=== PATIENT | male | born 1945 | race Caucasian/White ===

== ENCOUNTER 2021-04-01 18:54 | Inpatient (IN) | payer MEDICARE, SELFPAY ==
[~2021-04-01] VITALS: Ht 185.4 cm; Wt 74.8 kg
[2021-04-01 18:54] VITALS: BP_SYST 112
--- NOTE | 2021-04-01 18:54 | NUR ---
Pt. bib ACLS with hx. of being discharged from [facility] about 2 weeks ago, per pt. he was admitted there for 2 nights and 3 days with + covid, was sent home with O2, Pt. states all day he felt more SOB than normal and he increased his O2 from 2L to 4L, he began having pain to upper left back and felt like he could not breathe so called 911, on EMS arrival to home O2 sat 90% with 4L/NC, pt. was placed on 15L Non rebreather mask with sat improving to 94%. On arrival here pt. stated feeling much better sat still 94% with 160 heart rate, pt. confirms has SVT
[2021-04-01] MEDS ORDERED: ADENOSINE 6MG/2ML VIAL IVP ONE ×3 (19:00→23:30)
[2021-04-01] MEDS ORDERED: ADENOSINE 6MG/2ML VIAL ONE ×2 (19:00→23:22)
--- NOTE | 2021-04-01 19:02 | NUR ---
ER at bedside examining patient.
--- NOTE | 2021-04-01 19:03 | NUR ---
190 - HR 148 6mg of adenosine pushed; 1902 heart rate 69, wasted 12mg of adenosine that was drawn incase 6mg did not convert pt.
[2021-04-01] MEDS ORDERED: NACL 0.9% 1,000 ML IV ONE (19:15)
--- NOTE | 2021-04-01 19:45 | NUR ---
SPO2 100% on 15 L NRB. O2 titrated to 4 L NC. Pt tolerating well. SPO2 between 93-96%.
[2021-04-01 20:17] LABS: MONOCYTES # (AUTO) 0.3 K/uL (0.0-1.0)
--- NOTE | 2021-04-01 20:32 | NUR ---
19:15 received report to assume pt care. Pt is resting on gurney, awake, in nad. Reports feeling better. NSR on cm, HR 70s. O2 sat 98% on 15 L NRB with begin to titrate down. IVF bolus infusing. Safety measures in place. Will continue to monitor.
[2021-04-01 20:38] LABS: ANION GAP 6 (5-15); CALCIUM 7.4 mg/dL (8.4-11.0); CHLORIDE 106 mmol/L (98-107); CREATININE 1.07 mg/dL (0.55-1.30); GLUCOSE 108 mg/dL (70-99); POTASSIUM 4.3 mmol/L (3.5-5.1); SODIUM SERUM 138 mmol/L (136-145); UREA NITROGEN, BLOOD 29 mg/dL (8-21)
[2021-04-01 20:47] LABS: ALANINE AMINOTRANSFERASE 51 U/L (12-78); ASPARTATE AMINOTRANSFERASE 27 U/L (10-37)
--- NOTE | 2021-04-01 20:54 | NUR ---
Critical TNI [address] Brian notified at this time.
[2021-04-01] MEDS ORDERED: ASPIRIN 325 MG TABLET PO ONE (21:00)
[2021-04-01] MEDS ORDERED: VANCOMYCIN HCL 1,000 MG in NS 250 ML IV ONE (21:00)
[2021-04-01] MEDS ORDERED: DEXAMETHASONE SOD PHOSPHATE 10 MG/ML VIAL IVP ONE (21:00)
[2021-04-01] MEDS ORDERED: PIPERACILLIN/TAZO 3.375 GM in NS 50 ML IV ONE (21:00)
[2021-04-01 21:12] LABS: BASOPHILS % (AUTO) 0.2 % (0.0-2.0); EOSINOPHILS # (AUTO) 0.1 K/uL (0.0-0.4); EOSINOPHILS % (AUTO) 0.6 % (0.0-4.0); HEMATOCRIT 32.5 % (36-54); LYMPHOCYTES # (AUTO) 0.5 K/uL (1.0-5.5); LYMPHOCYTES % (AUTO) 5.9 % (20.5-51.5); MEAN CORPUSCULAR HEMOGLOBIN 29 pg (27-31); MEAN CORPUSCULAR HGB CONC 34 % (32-36); MEAN CORPUSCULAR VOLUME 85 fL (79.0-98.0); NEUTROPHILS # (AUTO) 7.1 K/uL (1.8-7.7); NEUTROPHILS % (AUTO) 89.3 % (40.0-70.0); RED BLOOD CELL COUNT(AUTO) 3.82 MIL/uL (4.2-6.2); RED CELL DISTRIBUTION WIDTH 15.7 % (9.0-15.0)
[2021-04-01 21:15] LABS: PLATELET COUNT (AUTO) 101 K/uL (130-430)
[2021-04-01] MEDS ORDERED: PIPERACILLIN/TAZOBACTAM 3.375 GM/VIAL (ZOSYN) IV ONE (21:20)
[2021-04-01] MEDS ORDERED: VANCOMYCIN HCL 1000 MG/VIAL IV ONE (21:20)
[2021-04-01] MEDS ORDERED: KCL 20 mEq in D5NS 1000 mL 1,000 ML IV SCH (21:45)
[2021-04-01] MEDS ORDERED: GABA-529 PO (21:57)
[2021-04-01] MEDS ORDERED: ECO81 PO (21:57)
[2021-04-01] MEDS ORDERED: ZANU80CA PO (21:57)
[2021-04-01] MEDS ORDERED: BENZ-16 PO (21:57)
[2021-04-01] MEDS ORDERED: CHOL400T12 PO (21:57)
[2021-04-01] MEDS ORDERED: AMLO5TAB4 PO (21:57)
[2021-04-01] MEDS ORDERED: ALBU90AE2 INH (21:57)
[2021-04-01] MEDS ORDERED: DEXA6TAB5 PO (21:57)
[2021-04-01] MEDS ORDERED: ASC500 PO (21:57)
[2021-04-01] MEDS ORDERED: METO50TA16 PO (21:57)
[2021-04-01] MEDS ORDERED: THIA100T70 PO (21:57)
[2021-04-01] MEDS ORDERED: LIP40 PO (21:57)
[2021-04-01] MEDS ORDERED: COLC0.6T67 PO (21:57)
--- NOTE | 2021-04-01 21:57 | NUR ---
Medication reconciliation completed with information provided by [facility]. Any prior medication reconciliation on file was reviewed and corrected.
--- NOTE | 2021-04-01 22:53 | NUR ---
Pt is resting on gurney in nad. Sleeping, easily arousable to verbal stimuli. Resp are e/u. SPO2 94% on 4 L NC. NSR on cm, HR 60s. IV antiobiotics infusing. Urinal at bedside. Will continue to monitor.
--- NOTE | 2021-04-01 23:34 | NUR ---
Pt noted to be in SVT, HR 157 on cm at 23:28. Dr. Blanca made aware. Tech at bedside for EKG. MD at bedside. Orders received to administer 6 mg of adenosine IVP. Adenosine administered, see emar. Pt convereted back to NSR. Repeat EKG placed in chart. 23:37 Admitting MD at bedside. New admissions orders for ICU for possible cardizem drip.
[2021-04-02] MEDS ORDERED: BENZONATATE 100 MG CAPSULE (TESSALON) PO SCH
[2021-04-02] MEDS: DECADRON 4 MG TABLET PO SCH (00:15)
[2021-04-02] MEDS ORDERED: cefTRIAXone 1 GM VIAL ONE (02:30)
[2021-04-02] MEDS ORDERED: KCL 20 mEq in D5NS 1000 mL 1,000 ML IV ONE (02:48)
[2021-04-02] MEDS ORDERED: ENOXAPARIN SODIUM 40 MG/0.4 ML SYRINGE ONE (02:50)
[2021-04-02] MEDS ORDERED: dilTIAZem HCL IVP 5 MG/ML VIAL ONE (02:58)
--- NOTE | 2021-04-02 03:05 | NUR ---
03:00 Pt noted to convert to SVT, HR 150s. Admitting MD, Dr. Garsia called at this time. Received telephone orders for 10 mg of Cardizem IVP STAT. If cardizem dose does not decrease HR, initiate cardizem drip. 03:06 Pt converted from SVT to Sinus carl, HR 50s. SPO2 decreased to 85% on 5 L NC. O2 titrated. Pt now on 15 L NRB and tolerating well. SPO2 now <92%.
[2021-04-02] MEDS ORDERED: dilTIAZem HCL IVP 5 MG/ML VIAL IVP ONE (03:15)
--- NOTE | 2021-04-02 07:15 | NUR ---
PT TO BS COMODE HAD LARGE BROWN FORMED BM
--- NOTE | 2021-04-02 07:25 | NUR ---
CONSULTATION PAGED/CALLED Reason for Consultation: [] ABNORMAL TROP, SVT, Person Who was Notified: [] EHSAN Consulting Physician: [] DR CLEMENT Spin Instructor Specialty: [] INSTRUMENT AND CONTROLS TECHNICIAN Ordering Physician: [] DR ROJAS
--- NOTE | 2021-04-02 08:00 | NUR ---
DR HESS AT BEDSIDE
[2021-04-02] MEDS: ASPIRIN 81 MG TABLET(ECOTRIN) PO SCH (08:31)
[2021-04-02] MEDS: COLCHICINE 0.6 MG TABLET PO SCH (08:31)
[2021-04-02] MEDS: ATORVASTATIN 20 MG TABLET PO SCH (08:32)
[2021-04-02] MEDS: METOPROLOL TARTRATE 50 MG TABLET PO SCH ×2 (08:32→21:00)
[2021-04-02] MEDS: THIAMINE HCL 100 MG TABLET PO SCH (08:33)
[2021-04-02] MEDS: GABAPENTIN 100 MG CAPSULE PO SCH ×2 (08:33→21:42)
[2021-04-02] MEDS: ASCORBIC ACID 500 MG TABLET PO SCH (08:34)
[2021-04-02] MEDS: CHOLECALCIFEROL (VITAMIN D-3) 400 UNIT TABLET PO SCH (08:34)
[2021-04-02] MEDS: ENOXAPARIN SODIUM 40 MG/0.4 ML SYRINGE SUBCUT SCH ×3 (08:35→21:43)
[2021-04-02 08:39] LABS: ANION GAP 12 (5-15); CALCIUM 7.9 mg/dL (8.4-11.0); CHLORIDE 107 mmol/L (98-107); CREATININE 0.94 mg/dL (0.55-1.30); GLUCOSE 161 mg/dL (70-99); SODIUM SERUM 137 mmol/L (136-145); UREA NITROGEN, BLOOD 25 mg/dL (8-21)
--- NOTE | 2021-04-02 09:13 | NUR ---
GI MD AT BEDSIDE
[2021-04-02] MEDS: VANCOMYCIN HCL 1,500 MG in NS 250 ML IV SCH (09:37)
[2021-04-02 11:24] LABS: BASOPHILS % (AUTO) 0.1 % (0.0-2.0); EOSINOPHILS % (AUTO) 0.1 % (0.0-4.0); HEMATOCRIT 36.3 % (36-54); LYMPHOCYTES # (AUTO) 0.5 K/uL (1.0-5.5); LYMPHOCYTES % (AUTO) 5.9 % (20.5-51.5); MEAN CORPUSCULAR HEMOGLOBIN 29 pg (27-31); MEAN CORPUSCULAR HGB CONC 33 % (32-36); MEAN CORPUSCULAR VOLUME 87 fL (79.0-98.0); MONOCYTES # (AUTO) 0.1 K/uL (0.0-1.0); MONOCYTES % (AUTO) 1.5 % (1.7-9.3); NEUTROPHILS # (AUTO) 7.2 K/uL (1.8-7.7); NEUTROPHILS % (AUTO) 92.4 % (40.0-70.0); PLATELET COUNT (AUTO) 91 K/uL (130-430); RED BLOOD CELL COUNT(AUTO) 4.19 MIL/uL (4.2-6.2); RED CELL DISTRIBUTION WIDTH 16.3 % (9.0-15.0); WHITE BLOOD COUNT (AUTO) 7.8 K/uL (4.8-10.8)
--- NOTE | 2021-04-02 13:12 | NUR ---
EATING LUNCH VOICES NO COMPLAINTS
[2021-04-02] MEDS: KCL 20 mEq in D5NS 1000 mL 1,000 ML IV SCH ×2 (16:46→17:00)
--- NOTE | 2021-04-02 18:47 | NUR ---
TOLERATED DINNER VOICES NO COMPLAINTS VSS
--- NOTE | 2021-04-02 19:17 | NUR ---
Assumed care of patient at change of shift. Introduced self to patient, currently on 6l n/c w/ pox note at 93%. Bed to low position sr up, continue to monitor. Patient resting quietly. No acute distress noted. Vital signs within normal range.
--- NOTE | 2021-04-02 19:17 | NUR ---
REPORT TO FRANK
--- NOTE | 2021-04-02 21:49 | NUR ---
Patient medicated as ordered w/ routine medications. will observe patient for any adverse reaction. Bed to low position sr up. continue to monitor. Patient resting quietly. No acute distress noted. Vital signs within normal range.
--- NOTE | 2021-04-02 23:55 | NUR ---
Medicated w/ iv rocephin per MD orders. IVF infusing with no s/s of infiltration at this time. Will cont to monitor and observe for any adverse reaction. bed to low position sr up, continue to monitor.
[2021-04-02] MEDS: cefTRIAXone 1 GM in D5W 50 ML IV SCH ×3 (23:57)
[2021-04-03] MEDS: DECADRON 4 MG TABLET PO SCH (01:23)
--- NOTE | 2021-04-03 02:04 | NUR ---
patient noted to go from nsr to SVT w/ hr of 164. MD Romero to be notified.
[2021-04-03] MEDS ORDERED: dilTIAZem HCL IVP 5 MG/ML VIAL IVP ONE (02:15)
--- NOTE | 2021-04-03 02:15 | NUR ---
Medicated w/ 10mg of cardizem ivp per MD orders. IVF infusing with no s/s of infiltration at this time. Will cont to monitor and observe for any adverse reaction. Had patient not coverted patient has order for cardizem 10mg/hr gtt (currently on hold).
[2021-04-03] MEDS: KCL 20 mEq in D5NS 1000 mL 1,000 ML IV SCH ×3 (03:05→22:57)
[2021-04-03 07:03] LABS: HEMATOCRIT 23.9 % (36-54); HEMOGLOBIN 9.5 g/dL (14.0-18.0); MEAN CORPUSCULAR HEMOGLOBIN 38 pg (27-31); MEAN CORPUSCULAR HGB CONC 40 % (32-36); MEAN CORPUSCULAR VOLUME 97 fL (79.0-98.0); PLATELET COUNT (AUTO) 83 K/uL (130-430); RED BLOOD CELL COUNT(AUTO) 2.47 MIL/uL (4.2-6.2); RED CELL DISTRIBUTION WIDTH 15.9 % (9.0-15.0)
[2021-04-03 07:14] LABS: ALANINE AMINOTRANSFERASE 70 U/L (12-78); ALBUMIN 1.6 g/dL (3.4-4.8); ANION GAP 8 (5-15); ASPARTATE AMINOTRANSFERASE 39 U/L (10-37); CALCIUM 7.6 mg/dL (8.4-11.0); CHLORIDE 111 mmol/L (98-107); CREATININE 0.81 mg/dL (0.55-1.30); GLUCOSE 155 mg/dL (70-99); POTASSIUM 4.8 mmol/L (3.5-5.1); SODIUM SERUM 140 mmol/L (136-145); THYROID STIMULATING HORMONE 1.19 uIu/mL (0.36-3.74); TOTAL BILIRUBIN 0.3 mg/dL (0.0-1.0); UREA NITROGEN, BLOOD 25 mg/dL (8-21)
[2021-04-03 07:38] LABS: CHOLESTEROL 76 mg/dL (<200); HDL CHOLESTEROL 20 mg/dL (>45); LDL CHOLESTEROL 48 mg/dL (<100); TRIGLYCERIDES 66 mg/dL (30-150)
[2021-04-03] MEDS: ASPIRIN 81 MG TABLET(ECOTRIN) PO SCH (08:40)
[2021-04-03] MEDS: COLCHICINE 0.6 MG TABLET PO SCH (08:40)
[2021-04-03] MEDS: METOPROLOL TARTRATE 50 MG TABLET PO SCH ×2 (08:41→21:00)
[2021-04-03] MEDS: ATORVASTATIN 20 MG TABLET PO SCH (08:41)
[2021-04-03] MEDS: ASCORBIC ACID 500 MG TABLET PO SCH (08:42)
[2021-04-03] MEDS: GABAPENTIN 100 MG CAPSULE PO SCH ×2 (08:42→21:08)
[2021-04-03] MEDS: CHOLECALCIFEROL (VITAMIN D-3) 400 UNIT TABLET PO SCH (08:42)
[2021-04-03] MEDS: THIAMINE HCL 100 MG TABLET PO SCH (08:42)
[2021-04-03] MEDS: ENOXAPARIN SODIUM 40 MG/0.4 ML SYRINGE SUBCUT SCH ×2 (08:44→21:09)
--- NOTE | 2021-04-03 09:20 | NUR ---
DR HESS UPDATED AND AT BEDSIDE NO ORDERS RECEIVED
[2021-04-03] MEDS ORDERED: ALBUTEROL MDI INHALATION 8 GM INH INH PRN (10:00)
[2021-04-03] MEDS: VANCOMYCIN HCL 1,500 MG in NS 250 ML IV SCH (10:08)
--- NOTE | 2021-04-03 10:58 | NUR ---
Sara balbuena in [facility] - 04/03/21 at 1059 by [email or web address] after oj pt states feeling better
[2021-04-03] MEDS ORDERED: BARICITINIB -Non-Formulary 2 MG TABLET PO ONE (11:00)
[2021-04-03 12:56] LABS: ATYPICAL LYMPHOCYTES % 0 % (0-0); BAND % (MANUAL) 7 % (0-6); BASOPHILS % (MANUAL) 0 % (0-2); EOSINOPHILS % (MANUAL) 0 % (0-7); LYMPHOCYTES % (MANUAL) 8 % (20-46); MONOCYTES % (MANUAL) 3 % (0-11)
--- NOTE | 2021-04-03 18:59 | NUR ---
eating dinner stable voices no complaimts
--- NOTE | 2021-04-03 19:16 | NUR ---
REPORT TO JEAN TELLO
--- NOTE | 2021-04-03 19:24 | NUR ---
REPORT RECIEVED FROM LAN TELLO
[2021-04-03] MEDS ORDERED: DOXYCYCLINE HYCLATE 100 MG CAPSULE ONE (20:48)
[2021-04-03] MEDS: DOXYCYCLINE HYCLATE 100 MG CAPSULE PO SCH (21:08)
--- NOTE | 2021-04-03 21:30 | NUR ---
PT RESTING IN BED WATCHING TV. A&OX4. NO COMPLAINTS
--- NOTE | 2021-04-03 23:44 | NUR ---
PT SLEEPING IN BED. VSS
[2021-04-04] MEDS: cefTRIAXone 1 GM in D5W 50 ML IV SCH (00:15)
[2021-04-04] MEDS: DECADRON 4 MG TABLET PO SCH (00:15)
--- NOTE | 2021-04-04 01:45 | NUR ---
PT HAD A BOWEL MOVEMENT. PT PLACED ON COMMODE AND MONITORED.
--- NOTE | 2021-04-04 08:15 | NUR ---
assisted pt. OOB for BM, AAOX4, no request, IV was not infusing
[2021-04-04] MEDS: ASPIRIN 81 MG TABLET(ECOTRIN) PO SCH (09:34)
[2021-04-04] MEDS: ATORVASTATIN 20 MG TABLET PO SCH (09:34)
[2021-04-04] MEDS: ENOXAPARIN SODIUM 40 MG/0.4 ML SYRINGE SUBCUT SCH ×2 (09:34→22:26)
[2021-04-04] MEDS: COLCHICINE 0.6 MG TABLET PO SCH (09:34)
[2021-04-04] MEDS: BARICITINIB -Non-Formulary 2 MG TABLET PO SCH (09:35)
[2021-04-04] MEDS: METOPROLOL TARTRATE 50 MG TABLET PO SCH ×2 (09:36→19:34)
[2021-04-04] MEDS: THIAMINE HCL 100 MG TABLET PO SCH (09:37)
[2021-04-04] MEDS: ASCORBIC ACID 500 MG TABLET PO SCH (09:37)
[2021-04-04] MEDS: GABAPENTIN 100 MG CAPSULE PO SCH ×2 (09:37→22:25)
[2021-04-04] MEDS: DOXYCYCLINE HYCLATE 100 MG CAPSULE PO SCH ×2 (09:37→22:25)
[2021-04-04] MEDS: CHOLECALCIFEROL (VITAMIN D-3) 400 UNIT TABLET PO SCH (09:38)
--- NOTE | 2021-04-04 09:40 | NUR ---
unable to flush IV, DC'd, will replace
--- NOTE | 2021-04-04 13:42 | NUR ---
attempted to start IV unable, Dr. Gustafson at bedside will try with U/S, phone update to Maddie pts. daughter, orders rec'd earlier from Dr. Romero to change pt. to tele from ICU and regular diet
[2021-04-04 15:08] LABS: LYMPHOCYTES # (AUTO) 0.9 K/uL (1.0-5.5); MONOCYTES # (AUTO) 0.1 K/uL (0.0-1.0); PLATELET COUNT (AUTO) 116 K/uL (130-430)
[2021-04-04] MEDS: KCL 20 mEq in D5NS 1000 mL 1,000 ML IV SCH ×2 (15:08→19:34)
--- NOTE | 2021-04-04 15:40 | NUR ---
Patient will be admitted to care of Dr. Babcock. Admitted to tele unit. Will go to room 123A. Belongings list completed. Complete and up to date summary report printed. SBAR report given at bedside with Mel TELLO opportunity for questions. Addendum: 04/04/21 at 1552 by [email or web address] pt. admitted to Dr. Romero
[2021-04-04 15:52] VITALS: BP_SYST 152
[2021-04-04 15:53] LABS: BASOPHILS % (AUTO) 0.5 % (0.0-2.0); LYMPHOCYTES % (AUTO) 14.2 % (20.5-51.5); MONOCYTES % (AUTO) 1.9 % (1.7-9.3); NEUTROPHILS # (AUTO) 5.2 K/uL (1.8-7.7); NEUTROPHILS % (AUTO) 83.4 % (40.0-70.0)
[2021-04-04 16:00] VITALS: BP_SYST 147
[2021-04-04 16:00] LABS: HEMATOCRIT 32.6 % (36-54); HEMOGLOBIN 10.9 g/dL (14.0-18.0); MEAN CORPUSCULAR HEMOGLOBIN 29 pg (27-31); MEAN CORPUSCULAR VOLUME 86 fL (79.0-98.0)
[2021-04-04 16:01] LABS: MEAN CORPUSCULAR HGB CONC 34 % (32-36); RED CELL DISTRIBUTION WIDTH 16.3 % (9.0-15.0)
[2021-04-04 16:02] LABS: WHITE BLOOD COUNT (AUTO) 6.2 K/uL (4.8-10.8)
[2021-04-04 17:02] LABS: ALANINE AMINOTRANSFERASE 158 U/L (12-78); ANION GAP 9 (5-15); ASPARTATE AMINOTRANSFERASE 81 U/L (10-37); CHLORIDE 110 mmol/L (98-107); CREATININE 1.03 mg/dL (0.55-1.30); GLUCOSE 108 mg/dL (70-99); POTASSIUM 4.7 mmol/L (3.5-5.1); SODIUM SERUM 140 mmol/L (136-145); TOTAL BILIRUBIN 0.6 mg/dL (0.0-1.0); UREA NITROGEN, BLOOD 33 mg/dL (8-21)
[2021-04-04 17:17] VITALS: BP_SYST 152
--- NOTE | 2021-04-04 18:03 | NUR ---
INFORMED REG NURSE MAURO THAT THE PATIENT'S HEART RATE IS 167
--- NOTE | 2021-04-04 21:02 | NUR ---
GOING TO BATHROOM SAYS IV WAS CAUGHT AND FELL OUT. WANTS NURSE TO PUT BACK IN. WILL DEFER UNTIL NEXT IV MED. GREGG HOWELL RN
[2021-04-04 21:03] VITALS: BP_SYST 145
[2021-04-05] MEDS: cefTRIAXone 1 GM in D5W 50 ML IV SCH ×2
--- NOTE | 2021-04-05 00:12 | NUR ---
IV PROBLEM: UNABLE TO LOCATE VEIN FOR INSERTION. GREGG HOWELL RN
[2021-04-05] MEDS: DECADRON 4 MG TABLET PO SCH (00:13)
[2021-04-05] MEDS: KCL 20 mEq in D5NS 1000 mL 1,000 ML IV SCH ×2 (05:00→19:00)
--- NOTE | 2021-04-05 07:52 | NUR ---
Handoff with OMER Hamlin. Jordi Magana RN
[2021-04-05 08:00] VITALS: BP_SYST 123
[2021-04-05] MEDS: ASCORBIC ACID 500 MG TABLET PO SCH (09:00)
[2021-04-05] MEDS: ATORVASTATIN 20 MG TABLET PO SCH (09:00)
[2021-04-05] MEDS: METOPROLOL TARTRATE 50 MG TABLET PO SCH ×2 (09:00→21:00)
[2021-04-05] MEDS: THIAMINE HCL 100 MG TABLET PO SCH (09:00)
[2021-04-05] MEDS: ASPIRIN 81 MG TABLET(ECOTRIN) PO SCH (09:00)
[2021-04-05] MEDS: GABAPENTIN 100 MG CAPSULE PO SCH ×2 (09:00→20:59)
[2021-04-05] MEDS: DOXYCYCLINE HYCLATE 100 MG CAPSULE PO SCH ×2 (09:00→20:59)
[2021-04-05] MEDS: ENOXAPARIN SODIUM 40 MG/0.4 ML SYRINGE SUBCUT SCH ×2 (09:00→21:01)
[2021-04-05] MEDS: CHOLECALCIFEROL (VITAMIN D-3) 400 UNIT TABLET PO SCH (09:00)
[2021-04-05] MEDS: COLCHICINE 0.6 MG TABLET PO SCH (09:00)
--- NOTE | 2021-04-05 11:45 | NUR ---
INFORMED REG NURSE MAURO THAT THE PATIENT'S HEART RATE IS 167
[2021-04-05 16:00] VITALS: BP_SYST 145
[2021-04-05 21:19] VITALS: BP_SYST 146
[2021-04-06] MEDS: KCL 20 mEq in D5NS 1000 mL 1,000 ML IV SCH ×3 (00:24→23:47)
[2021-04-06] MEDS: DECADRON 4 MG TABLET PO SCH ×2 (00:29→23:50)
[2021-04-06 00:55] VITALS: BP_SYST 151
--- NOTE | 2021-04-06 05:05 | NUR ---
Dr. Paige Consult Consult for Dr Paige was called [phone] RE Leukemia JESSICA Hinojosa
--- NOTE | 2021-04-06 08:00 | NUR ---
OPENING NOTES: PATIENT RESTING IN BED. BREATHING EVEN AND NON LABORED TO 2L/NC. FALL, SAFETY AND ASPIRATION MEASURES REINFORCED. CALL LIGHT WITHIN REACH
[2021-04-06 08:15] VITALS: BP_SYST 141
[2021-04-06] MEDS: THIAMINE HCL 100 MG TABLET PO SCH (10:09)
[2021-04-06] MEDS: ASPIRIN 81 MG TABLET(ECOTRIN) PO SCH (10:09)
[2021-04-06] MEDS: DOXYCYCLINE HYCLATE 100 MG CAPSULE PO SCH ×2 (10:09→20:53)
[2021-04-06] MEDS: ATORVASTATIN 20 MG TABLET PO SCH (10:09)
[2021-04-06] MEDS: GABAPENTIN 100 MG CAPSULE PO SCH ×2 (10:10→20:53)
[2021-04-06] MEDS: METOPROLOL TARTRATE 50 MG TABLET PO SCH ×2 (10:10→20:53)
[2021-04-06] MEDS: COLCHICINE 0.6 MG TABLET PO SCH (10:10)
[2021-04-06] MEDS: CHOLECALCIFEROL (VITAMIN D-3) 400 UNIT TABLET PO SCH (10:11)
[2021-04-06] MEDS: BARICITINIB -Non-Formulary 2 MG TABLET PO SCH (10:12)
[2021-04-06] MEDS: ASCORBIC ACID 500 MG TABLET PO SCH (10:14)
[2021-04-06] MEDS: ENOXAPARIN SODIUM 40 MG/0.4 ML SYRINGE SUBCUT SCH ×2 (10:14→20:53)
--- NOTE | 2021-04-06 12:00 | NUR ---
RN NOTES: PATIENT EATING DINNER. HOB ELEVATED. NO S/S OF ACUTE DISTRESS NOTED. CALL LIGHT WITHIN REACH.
[2021-04-06 12:15] VITALS: BP_SYST 135
--- NOTE | 2021-04-06 12:58 | NUR ---
SPOKE TO NIKKI MCKEON (DAUGHTER): SPOKE TO NIKKI MCKEON, THE DAUGHTER AND GAVE TELEPHONE CONSENT FOR PICC LINE PLACEMENT.
[2021-04-06 18:11] VITALS: BP_SYST 138
--- NOTE | 2021-04-06 19:10 | NUR ---
Closing notes: Patient resting in bed. No s/s of acute distress noted. Endorsed to night shift supervisor RN. Call light within reach.
[2021-04-06 21:00] LABS: BILIRUBIN,URINE NEGATIVE (NEGATIVE); BLOOD, URINE NEGATIVE (NEGATIVE); CLARITY/URINE CLEAR (CLEAR); COLOR,URINE YELLOW (YELLOW); GLUCOSE,URINE NEGATIVE (NEGATIVE); KETONES,URINE NEGATIVE (NEGATIVE); LEUKOCYTE ESTERASE ,URINE NEGATIVE (NEGATIVE); NITRITE, URINE NEGATIVE (NEGATIVE); PROTEIN URINE NEGATIVE (NEGATIVE); UROBILINOGEN,URINE 0.2 (0.2-1.0)
[2021-04-06 21:08] VITALS: BP_SYST 142
--- NOTE | 2021-04-06 23:00 | NUR ---
Pt had picc line placed in [facility]. chest xray done. Picc nurse gave clearance to use picc line. pt tolerated well
[2021-04-06] MEDS: cefTRIAXone 1 GM in D5W 50 ML IV SCH ×3 (23:47)
[2021-04-07 00:14] VITALS: BP_SYST 129
[2021-04-07] MEDS: KCL 20 mEq in D5NS 1000 mL 1,000 ML IV SCH ×2 (06:17→17:53)
--- NOTE | 2021-04-07 07:08 | NUR ---
endorsed care to day tn. pt in bed asleep. all needs meet at this time.
[2021-04-07 08:00] VITALS: BP_SYST 128
[2021-04-07 08:15] LABS: BASOPHILS % (AUTO) 0.7 % (0.0-2.0); HEMATOCRIT 25.6 % (36-54); HEMOGLOBIN 9.2 g/dL (14.0-18.0); LYMPHOCYTES # (AUTO) 0.6 K/uL (1.0-5.5); LYMPHOCYTES % (AUTO) 19.4 % (20.5-51.5); MEAN CORPUSCULAR HEMOGLOBIN 33 pg (27-31); MEAN CORPUSCULAR HGB CONC 36 % (32-36); MEAN CORPUSCULAR VOLUME 92 fL (79.0-98.0); MONOCYTES % (AUTO) 1.3 % (1.7-9.3); NEUTROPHILS # (AUTO) 2.3 K/uL (1.8-7.7); NEUTROPHILS % (AUTO) 78.6 % (40.0-70.0); PLATELET COUNT (AUTO) 74 K/uL (130-430); RED BLOOD CELL COUNT(AUTO) 2.77 MIL/uL (4.2-6.2); RED CELL DISTRIBUTION WIDTH 15.4 % (9.0-15.0); RETICULOCYTE COUNT 2.5 % (0.5-1.5); WHITE BLOOD COUNT (AUTO) 2.9 K/uL (4.8-10.8)
[2021-04-07 08:56] LABS: ALANINE AMINOTRANSFERASE 80 U/L (12-78); ALBUMIN 1.7 g/dL (3.4-4.8); ANION GAP 7 (5-15); ASPARTATE AMINOTRANSFERASE 22 U/L (10-37); C-REACTIVE PROTEIN QUANT < 0.2 mg/dL (0-0.5); CALCIUM 7.1 mg/dL (8.4-11.0); CHLORIDE 110 mmol/L (98-107); CREATININE 0.96 mg/dL (0.55-1.30); GLUCOSE 347 mg/dL (70-99); POTASSIUM 5.6 mmol/L (3.5-5.1); SODIUM SERUM 137 mmol/L (136-145); TOTAL BILIRUBIN 0.5 mg/dL (0.0-1.0); UREA NITROGEN, BLOOD 31 mg/dL (8-21)
[2021-04-07] MEDS: METOPROLOL TARTRATE 50 MG TABLET PO SCH ×2 (09:00→20:02)
[2021-04-07] MEDS ORDERED: ZANUBRUTINIB PO SCH (09:00)
[2021-04-07 09:01] LABS: TOTAL IRON BIND. CAPACITY 144 ug/dL (250-450)
[2021-04-07 09:11] LABS: INR 1.1 (0.80-1.20)
[2021-04-07] MEDS: ATORVASTATIN 20 MG TABLET PO SCH (09:15)
[2021-04-07] MEDS: ENOXAPARIN SODIUM 40 MG/0.4 ML SYRINGE SUBCUT SCH ×2 (09:15→20:02)
[2021-04-07] MEDS: COLCHICINE 0.6 MG TABLET PO SCH (09:15)
[2021-04-07] MEDS: ASPIRIN 81 MG TABLET(ECOTRIN) PO SCH (09:15)
[2021-04-07] MEDS: THIAMINE HCL 100 MG TABLET PO SCH (09:16)
[2021-04-07] MEDS: GABAPENTIN 100 MG CAPSULE PO SCH ×2 (09:17→20:02)
[2021-04-07] MEDS: DOXYCYCLINE HYCLATE 100 MG CAPSULE PO SCH ×2 (09:17→20:01)
[2021-04-07] MEDS: BARICITINIB -Non-Formulary 2 MG TABLET PO SCH (09:17)
[2021-04-07] MEDS: BENZONATATE 100 MG CAPSULE (TESSALON) PO PRN (09:17)
[2021-04-07] MEDS: CHOLECALCIFEROL (VITAMIN D-3) 400 UNIT TABLET PO SCH (09:18)
[2021-04-07] MEDS: ASCORBIC ACID 500 MG TABLET PO SCH (09:18)
--- NOTE | 2021-04-07 10:34 | NUR ---
alert, oriented, and very appropriate. non -productive cough noted, still carl, 57 when checked manually. LOPRESSOR held for the reason all blood work drawn from PICC line by author, result back just now, left message for the attending. asked the farmacy , concerning Remdisivir ivpb for this patient, missed the dose yesterday, secondary to decent iv line. Expected to get today at 11am as scheduled.
--- NOTE | 2021-04-07 11:36 | NUR ---
Dietitian Recommendations *Recommend[facility] (BG 347). *Encourage PO intake and document all PO intake. *Consider discontinuing D5% and addition of insulin coverage (BG trending up). Please see Nutritional Assessment for details. SAMANTHA, RD
[2021-04-07 12:00] VITALS: BP_SYST 119
[2021-04-07 16:00] VITALS: BP_SYST 115
[2021-04-07] MEDS ORDERED: SODIUM POLYSTYRENE SULFONATE 15 GM/60 ML UDBTL PO ONE (19:00)
[2021-04-07 20:00] VITALS: BP_SYST 119
--- NOTE | 2021-04-07 20:00 | NUR ---
PT HAD RUN OF SVT. HR 170-185. PHONE MANAGER NOTIFIED. PT MEDICATED. HR BACK TO WITHIN NORMAL RANGE. WILL CONTINUE TO MONITOR.
--- NOTE | 2021-04-07 20:48 | NUR ---
Paged Dr. Davey s/w Shruthi
[2021-04-07] MEDS ORDERED: METOPROLOL TARTRATE 5 MG/5 ML AMPUL IVP ONE (21:00)
--- NOTE | 2021-04-07 23:30 | NUR ---
PT HAD RUN OF SVT FOR ABOUT 3-5 MINUTES. HR 170-180. PT HR SWITCHED BACK TO TO 50-70 WITHOUT ANY INTERVENTION. WILL CONTINUE TO MONITOR.
[2021-04-07] MEDS: DECADRON 4 MG TABLET PO SCH (23:47)
[2021-04-07] MEDS: cefTRIAXone 1 GM in D5W 50 ML IV SCH (23:47)
[2021-04-08 00:10] VITALS: BP_SYST 109
[2021-04-08] MEDS: KCL 20 mEq in D5NS 1000 mL 1,000 ML IV SCH (03:00)
[2021-04-08 06:06] LABS: FOLATE (FOLIC ACID) 6.7 ng/mL (>3.0)
--- NOTE | 2021-04-08 06:55 | NUR ---
PT HR STAYED RADHA 40-60 BPM FOR THE REST OF THE SHIFT. ALL NEEDS MEET AT THIS TIME. WILL ENDORSE CARE TO DAY RN.
[2021-04-08 07:14] LABS: BASOPHILS % (AUTO) 0.8 % (0.0-2.0); EOSINOPHILS % (AUTO) 1.5 % (0.0-4.0); HEMATOCRIT 26.7 % (36-54); HEMOGLOBIN 10.8 g/dL (14.0-18.0); LYMPHOCYTES # (AUTO) 0.6 K/uL (1.0-5.5); LYMPHOCYTES % (AUTO) 22.7 % (20.5-51.5); MEAN CORPUSCULAR HEMOGLOBIN 37 pg (27-31); MEAN CORPUSCULAR HGB CONC 41 % (32-36); MEAN CORPUSCULAR VOLUME 92 fL (79.0-98.0); MONOCYTES # (AUTO) 0.1 K/uL (0.0-1.0); MONOCYTES % (AUTO) 3.7 % (1.7-9.3); NEUTROPHILS % (AUTO) 71.3 % (40.0-70.0); PLATELET COUNT (AUTO) 95 K/uL (130-430); RED CELL DISTRIBUTION WIDTH 15.8 % (9.0-15.0); WHITE BLOOD COUNT (AUTO) 2.8 K/uL (4.8-10.8)
[2021-04-08 07:43] LABS: ANION GAP 15 (5-15); CALCIUM 7.5 mg/dL (8.4-11.0); CHLORIDE 105 mmol/L (98-107); GLUCOSE 100 mg/dL (70-99); POTASSIUM 4.3 mmol/L (3.5-5.1); SODIUM SERUM 142 mmol/L (136-145); UREA NITROGEN, BLOOD 30 mg/dL (8-21)
[2021-04-08 08:06] LABS: IMMUNOGLOBULIN G, SERUM 516 mg/dL (603-1613)
[2021-04-08 08:15] VITALS: BP_SYST 126
--- NOTE | 2021-04-08 08:15 | NUR ---
Rec'd pt A+Ox4 laying in bed at 0700. Pt denies pain. PICC noted to L arm- S/L and blood return noted with flush. CSMW satisfactory. No headache, dizziness, chest pain, numbness, tingling or edema. Lungs diminished. No SOB noted. 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 BS x4. LBM Apr 08. Void QS. No N+V. No skin concerns. Hand tremors noted- needs assistance with meal set up. VSS. Will continue to monitor
[2021-04-08] MEDS: ASPIRIN 81 MG TABLET(ECOTRIN) PO SCH (08:16)
[2021-04-08] MEDS: COLCHICINE 0.6 MG TABLET PO SCH (08:16)
[2021-04-08] MEDS: ATORVASTATIN 20 MG TABLET PO SCH (08:16)
[2021-04-08] MEDS: GABAPENTIN 100 MG CAPSULE PO SCH ×2 (08:17→20:50)
[2021-04-08] MEDS: METOPROLOL TARTRATE 50 MG TABLET PO SCH ×2 (08:17→20:51)
[2021-04-08] MEDS: ASCORBIC ACID 500 MG TABLET PO SCH (08:17)
[2021-04-08] MEDS: BARICITINIB -Non-Formulary 2 MG TABLET PO SCH (08:17)
[2021-04-08] MEDS: THIAMINE HCL 100 MG TABLET PO SCH (08:17)
[2021-04-08] MEDS: DOXYCYCLINE HYCLATE 100 MG CAPSULE PO SCH ×2 (08:17→20:50)
[2021-04-08] MEDS: CHOLECALCIFEROL (VITAMIN D-3) 400 UNIT TABLET PO SCH (08:18)
[2021-04-08] MEDS: ENOXAPARIN SODIUM 40 MG/0.4 ML SYRINGE SUBCUT SCH ×2 (09:00→20:52)
[2021-04-08 11:24] VITALS: BP_SYST 125
[2021-04-08 16:27] VITALS: BP_SYST 125
--- NOTE | 2021-04-08 18:08 | NUR ---
Pt sitting up in bed eating dinner- set up required- no voiced concerns. IV remdesivir infusing. Will continue to monitor.
[2021-04-08 20:00] VITALS: BP_SYST 145
--- NOTE | 2021-04-08 21:30 | NUR ---
PT IS AWAKE,ALERT & ORIENTED X 4. SATURATING 9% @ 1L/MIN VIA NC. AFEBRILE. DENIES PAIN. PT RECEIVED HIS METORPROLOL ORDERED W/IN THE BP & HR PARAMETERS. A FEW MINS LATER, PT HAD AN EPISODE OF KAM=486H FOR ABOUT 1MINUTE AND RETURNED TO BASELINE HR OF 50-60BPM W/OUT ANY INTERVENTION. PER PT, HE WAS TAUGHT IN THE PAST TO BEAR DOWN ( IF DOING VALSALVA MANEUVER) WHEN HE DOES FEEL LIKE HIS HR IS RAISING & ACCORDING TO HIM, IT'S BEEN EFFECTIVE. FREQ ROUNDING AND VISUAL CHECKING. NEEDS ANTICIPATED. CALL LIGHT W/IN REACH. WILL CON'T TO MONITOR.
[2021-04-09] VITALS: BP_SYST 140
[2021-04-09] MEDS: DECADRON 4 MG TABLET PO SCH ×2 (00:44→23:38)
[2021-04-09 04:00] VITALS: BP_SYST 138
--- NOTE | 2021-04-09 05:30 | NUR ---
PT IS AWAKE, ALERT & ORIENTED. PT'S HR HAS BEEN ON THE 50-60S THE WHOLE ENTIRE NIGHT. PT IS ASYMPTOMATIC BRADYCARDIC, NO LIGHTHEADEDNESS. PT IS B&B CONTINENT AND STILL ABLE TO AMBULATE TO THE BATHROOM W/ NO COMPLAINTS OF LIGHTHEADEDNESS OR DIZZINESS, NO CONFUSION. SUPERVISED & STANDBY ASSIST WHILE AMBULATING TO THE BATHROOM FOR SAFETY. WILL CON'T TO MONITOR PT.
--- NOTE | 2021-04-09 06:00 | NUR ---
pt noted with elevated HR-156-159 for about 5mins BP of 84/65. instructed pt to do valsalva maneuver by blowing on a clamped straw, or sucking on thumb or bearing down. still elevated HR. paged Dr. Davey and made aware w/ new order for Lopressor 2.5mg IVP x1 now and NS 250ml IV bolus noted and carried out.upon administering NS IV bolus due to BP being 84/65. pt's HR noted to be slowing down to 60s without pharmacological intervention. Lopressor IV held as pt's HR is down to 62. ns 250ml IV bolus administered as ordered. will con't to monitor. will endorse to morning shift RN.
[2021-04-09] MEDS ORDERED: NS 250 ML IV ONE (06:15)
[2021-04-09] MEDS ORDERED: METOPROLOL TARTRATE 5 MG/5 ML AMPUL IVP ONE (06:15)
[2021-04-09 08:20] VITALS: BP_SYST 129; BP_SYST 139
--- NOTE | 2021-04-09 08:20 | NUR ---
Rec'd pt A+Ox4 laying in bed at 0700. Pt denies pain. PICC noted to L arm- S/L and blood return noted with flush. CSMW satisfactory. No headache, dizziness, chest pain, numbness, tingling or edema. Lungs diminished. No SOB noted. 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 BS x4. LBM Apr 09. Void QS. No N+V. No skin concerns. Hand tremors noted- needs assistance with meal set up. VSS. Will continue to monitor
[2021-04-09] MEDS: COLCHICINE 0.6 MG TABLET PO SCH (08:27)
[2021-04-09] MEDS: CHOLECALCIFEROL (VITAMIN D-3) 400 UNIT TABLET PO SCH (08:27)
[2021-04-09] MEDS: ASPIRIN 81 MG TABLET(ECOTRIN) PO SCH (08:27)
[2021-04-09] MEDS: ATORVASTATIN 20 MG TABLET PO SCH (08:27)
[2021-04-09] MEDS: ENOXAPARIN SODIUM 40 MG/0.4 ML SYRINGE SUBCUT SCH ×2 (08:27→21:46)
[2021-04-09] MEDS: DOXYCYCLINE HYCLATE 100 MG CAPSULE PO SCH ×2 (08:28→21:42)
[2021-04-09] MEDS: THIAMINE HCL 100 MG TABLET PO SCH (08:28)
[2021-04-09] MEDS: GABAPENTIN 100 MG CAPSULE PO SCH ×2 (08:28→21:43)
[2021-04-09] MEDS: ASCORBIC ACID 500 MG TABLET PO SCH (08:28)
[2021-04-09] MEDS: METOPROLOL TARTRATE 50 MG TABLET PO SCH ×2 (08:29→21:44)
[2021-04-09] MEDS: BARICITINIB -Non-Formulary 2 MG TABLET PO SCH (08:29)
[2021-04-09 09:13] LABS: BASOPHILS % (AUTO) 0.5 % (0.0-2.0); EOSINOPHILS % (AUTO) 0.1 % (0.0-4.0); HEMATOCRIT 31.7 % (36-54); HEMOGLOBIN 10.9 g/dL (14.0-18.0); LYMPHOCYTES # (AUTO) 0.7 K/uL (1.0-5.5); LYMPHOCYTES % (AUTO) 22.1 % (20.5-51.5); MEAN CORPUSCULAR HEMOGLOBIN 31 pg (27-31); MEAN CORPUSCULAR HGB CONC 34 % (32-36); MEAN CORPUSCULAR VOLUME 89 fL (79.0-98.0); MONOCYTES % (AUTO) 1.2 % (1.7-9.3); NEUTROPHILS # (AUTO) 2.6 K/uL (1.8-7.7); NEUTROPHILS % (AUTO) 76.1 % (40.0-70.0); PLATELET COUNT (AUTO) 78 K/uL (130-430); RED BLOOD CELL COUNT(AUTO) 3.58 MIL/uL (4.2-6.2); RED CELL DISTRIBUTION WIDTH 15.5 % (9.0-15.0); WHITE BLOOD COUNT (AUTO) 3.4 K/uL (4.8-10.8)
[2021-04-09 12:24] VITALS: BP_SYST 136
[2021-04-09 14:14] LABS: ANION GAP 15 (5-15); CALCIUM 8.1 mg/dL (8.4-11.0); CHLORIDE 109 mmol/L (98-107); CREATININE 0.98 mg/dL (0.55-1.30); GLUCOSE 126 mg/dL (70-99); POTASSIUM 4.3 mmol/L (3.5-5.1); SODIUM SERUM 144 mmol/L (136-145); UREA NITROGEN, BLOOD 32 mg/dL (8-21)
[2021-04-09 14:20] LABS: ALANINE AMINOTRANSFERASE 76 U/L (12-78); ALBUMIN 2.4 g/dL (3.4-4.8); ASPARTATE AMINOTRANSFERASE 31 U/L (10-37); TOTAL BILIRUBIN 0.8 mg/dL (0.0-1.0)
[2021-04-09 17:00] VITALS: BP_SYST 165
--- NOTE | 2021-04-09 18:08 | NUR ---
Pt sitting up in bed eating dinner- set up required- no voiced concerns. IV remdesivir infusing. Will continue to monitor.
[2021-04-09 20:45] VITALS: BP_SYST 128
[2021-04-09] MEDS ORDERED: dilTIAZem HCL IVP 5 MG/ML VIAL ONE (21:34)
[2021-04-10 00:45] VITALS: BP_SYST 135
[2021-04-10 08:30] VITALS: BP_SYST 125
[2021-04-10] MEDS: METOPROLOL TARTRATE 50 MG TABLET PO SCH ×2 (08:50→22:51)
[2021-04-10] MEDS: ASPIRIN 81 MG TABLET(ECOTRIN) PO SCH (08:50)
[2021-04-10] MEDS: CHOLECALCIFEROL (VITAMIN D-3) 400 UNIT TABLET PO SCH (08:50)
[2021-04-10] MEDS: BARICITINIB -Non-Formulary 2 MG TABLET PO SCH (08:50)
[2021-04-10] MEDS: ASCORBIC ACID 500 MG TABLET PO SCH (08:50)
[2021-04-10] MEDS: ATORVASTATIN 20 MG TABLET PO SCH (08:51)
[2021-04-10] MEDS: THIAMINE HCL 100 MG TABLET PO SCH (08:51)
[2021-04-10] MEDS: GABAPENTIN 100 MG CAPSULE PO SCH ×2 (08:51→22:09)
[2021-04-10] MEDS: ENOXAPARIN SODIUM 40 MG/0.4 ML SYRINGE SUBCUT SCH ×2 (08:52→22:52)
[2021-04-10] MEDS: COLCHICINE 0.6 MG TABLET PO SCH (08:52)
[2021-04-10 11:34] VITALS: BP_SYST 123
[2021-04-10 12:41] LABS: BASOPHILS % (AUTO) 0.3 % (0.0-2.0); EOSINOPHILS % (AUTO) 0.3 % (0.0-4.0); HEMATOCRIT 28.8 % (36-54); HEMOGLOBIN 10.2 g/dL (14.0-18.0); LYMPHOCYTES # (AUTO) 0.6 K/uL (1.0-5.5); MEAN CORPUSCULAR HEMOGLOBIN 32 pg (27-31); MEAN CORPUSCULAR HGB CONC 36 % (32-36); MEAN CORPUSCULAR VOLUME 89 fL (79.0-98.0); MONOCYTES # (AUTO) 0.1 K/uL (0.0-1.0); MONOCYTES % (AUTO) 1.7 % (1.7-9.3); NEUTROPHILS # (AUTO) 2.5 K/uL (1.8-7.7); NEUTROPHILS % (AUTO) 77.7 % (40.0-70.0); PLATELET COUNT (AUTO) 76 K/uL (130-430); RED BLOOD CELL COUNT(AUTO) 3.24 MIL/uL (4.2-6.2); RED CELL DISTRIBUTION WIDTH 15.8 % (9.0-15.0); WHITE BLOOD COUNT (AUTO) 3.2 K/uL (4.8-10.8)
[2021-04-10 13:30] LABS: ALANINE AMINOTRANSFERASE 75 U/L (12-78); ALBUMIN 2.3 g/dL (3.4-4.8); ANION GAP 10 (5-15); CALCIUM 7.8 mg/dL (8.4-11.0); CHLORIDE 107 mmol/L (98-107); CREATININE 0.89 mg/dL (0.55-1.30); GLUCOSE 80 mg/dL (70-99); POTASSIUM 4.6 mmol/L (3.5-5.1); SODIUM SERUM 139 mmol/L (136-145); TOTAL BILIRUBIN 0.9 mg/dL (0.0-1.0); UREA NITROGEN, BLOOD 35 mg/dL (8-21)
[2021-04-10 13:40] LABS: ASPARTATE AMINOTRANSFERASE 76 U/L (10-37)
--- NOTE | 2021-04-10 14:01 | NUR ---
Pt in SVT- paged - orders received.
[2021-04-10] MEDS ORDERED: METOPROLOL TARTRATE 5 MG/5 ML AMPUL ONE (14:10)
[2021-04-10] MEDS ORDERED: METOPROLOL TARTRATE 5 MG/5 ML AMPUL IVP ONE (14:15)
[2021-04-10 14:23] VITALS: BP_SYST 100
--- NOTE | 2021-04-10 14:24 | NUR ---
1410: IV Lopressor given per eMAR, VSS. Will continue to monitor. 1415: VSS. 100/66, 146 1425: Pt still in SVT.
--- NOTE | 2021-04-10 15:10 | NUR ---
Pt converted back to NSB. VSS. Will continue to monitor.
[2021-04-10 15:52] VITALS: BP_SYST 122
--- NOTE | 2021-04-10 16:20 | NUR ---
Nutrition F/U Admitting Diagnosis COVID-19 PNA Reviewed Pertinent Medical/Surgical Hx Medical Record Other Medical History Comment: Per EMR review, pt w/ PMH of SVT, HTN, leukemia, amputation or R toe, and mild respiratory failure. SARS-CoV-2 Ag Rapid 04/01 Positive, vaccinated status. Subjective Information RD bedside visit deferred d/t airborne isolation precautions a/w COVID. Per EMR review, pt has been having less SOB, on 1 L O2 via NC x2 days; 100% PO intakes x4 meals records. Current diet is adequate/appropriate. Current Diet Order/Nutrition Support Regular, [facility] x3 days days Patient/Significant Other Unable To Verbalize Education Provided Not Indicated Pertinent Medications VIT C, VIT D3, zinc, lipitor, decadron, lovenox, thiamine, lopressor Pertinent Labs Co2 22 L, BUN 35 H, Ca 78 L, AST 76 H, ALB 2.3 L Height (Feet) 6 feet Height (Inches) 1.00 inches Weight (Pounds) 165 pounds -- stable since 04/07 Weight (Calculated Kilograms) 74.999409 kilograms Patient Weight 74.843 kg Body Mass Index 21.77 kg/m2 %IBW 89 Kathleen/Adjusted Body Weight 184 pounds/ 84 kg Weight Status Appropriate Skin Integrity Comment: Luciano score 21. No skin issues/edema noted. Current % PO Good 100% Estimated Energy Expenditure (kcals/day) 2755-3244 kcals/day (30-35 kcals/kg CBW for acute state) Estimated Protein Required (g/day) 90-112 (1.2-1.5 g/kg CBW for acute state) Estimated Fluid Required (l/day) 2.3-2.6 (1 mL/kcal for maintenance) Problem/Etiology/Signs/Symptoms Increased nutritional needs r/t metabolic demands aeb Sars-CoV-2 Ag (Rapid) positive 04/01. *ongoing Altered nutrition-related lab values r/t food-medication interaction aeb elevated BG, pt on dextrose 100 mL/hr and Decadron. *improved, however, still on steroid med Expected Outcomes/Goals Monitor appetite and PO intake w/ goal of pt meeting more than 75% of estimated nutritional needs, labs trending WNL, normal GI function, skin integrity/wt maintenance. Dietitian Recommendations * Continue regular, [facility] diet Follow Up Moderate Risk: F/U in 3-5 days
--- NOTE | 2021-04-10 16:25 | NUR ---
Dietitian Recommendations * Continue regular, [facility] diet [facility], RD Please refer to Nutrition F/U for details.
--- NOTE | 2021-04-10 18:03 | NUR ---
Pt sitting up in bed eating dinner- set up required- no voiced concerns. HR stable at 69. Will continue to monitor.
[2021-04-10 20:00] VITALS: BP_SYST 124
--- NOTE | 2021-04-10 21:48 | NUR ---
PT IN SVT. HR IN 150'S. NIGHT TIME LOPRESSOR ADMINISTERED. PT TOLERATED WELL. PT DENIES PAIN OR SOB AT THIS TIME. PT STATES HE CAN "FEEL WHEN HE IS BEGINNING TO GO INTO SVT".
--- NOTE | 2021-04-10 22:11 | NUR ---
PT HR 56. PT DENIES PAIN OR SOB. PT COOPERATIVE AND STATES HE FEELS FINE.
[2021-04-10] MEDS: DECADRON 4 MG TABLET PO SCH (23:21)
[2021-04-11 00:11] VITALS: BP_SYST 124
--- NOTE | 2021-04-11 01:58 | NUR ---
PT HR ELEVATED AT 148. PT IN SVT'S. PT SEEN AND NO SIGNS OF DISTRESS NOTED. PT TOLD TO BEAR DOWN. HR CONTINUES TO BE ELEVATED.
--- NOTE | 2021-04-11 02:48 | NUR ---
DR CLEMENT CALLED. INFORMED MD OF PT SVT'S. NEW ORDERS PLACED. TO/RB.
[2021-04-11] MEDS ORDERED: METOPROLOL TARTRATE 5 MG/5 ML AMPUL IVP ONE (03:00)
--- NOTE | 2021-04-11 03:21 | NUR ---
PT SVT CONVERTED BACK TO SINUS RADHA (56 BPM). PT AWAKE AND STATES HE KNEW WHEN HE CONVERTED BACK BECAUSE HE CAN FEEL THE DIFFERENCE. EDUCATED PT ON NEW MEDICATIONS ORDERED. PT VERBALIZED UNDERSTANDING. ONE TIME ORDER OF LOPRESSOR IVP HELD AT THIS TIME. PT DENIES PAIN OR SOB. WILL CONTINUE TO MONITOR.
[2021-04-11] MEDS: ENOXAPARIN SODIUM 40 MG/0.4 ML SYRINGE SUBCUT SCH ×2 (09:00→21:58)
[2021-04-11] MEDS: COLCHICINE 0.6 MG TABLET PO SCH (09:00)
[2021-04-11] MEDS: METOPROLOL TARTRATE 50 MG TABLET PO SCH ×2 (09:00→21:27)
[2021-04-11] MEDS: AMIODARONE HCL 200 MG TABLET PO SCH ×2 (09:00→21:26)
[2021-04-11] MEDS: BARICITINIB -Non-Formulary 2 MG TABLET PO SCH (09:00)
[2021-04-11] MEDS: ATORVASTATIN 20 MG TABLET PO SCH (09:00)
[2021-04-11] MEDS: CHOLECALCIFEROL (VITAMIN D-3) 400 UNIT TABLET PO SCH (09:00)
[2021-04-11] MEDS: THIAMINE HCL 100 MG TABLET PO SCH (09:00)
[2021-04-11 09:50] LABS: BASOPHILS % (AUTO) 0.1 % (0.0-2.0); EOSINOPHILS % (AUTO) 0.1 % (0.0-4.0); LYMPHOCYTES # (AUTO) 0.3 K/uL (1.0-5.5); LYMPHOCYTES % (AUTO) 9.7 % (20.5-51.5); MEAN CORPUSCULAR VOLUME 89 fL (79.0-98.0); MONOCYTES % (AUTO) 0.5 % (1.7-9.3); NEUTROPHILS # (AUTO) 2.5 K/uL (1.8-7.7); PLATELET COUNT (AUTO) 137 K/uL (130-430); RED CELL DISTRIBUTION WIDTH 16.6 % (9.0-15.0)
[2021-04-11] MEDS: ASCORBIC ACID 500 MG TABLET PO SCH ×2 (11:23→11:26)
[2021-04-11] MEDS: ASPIRIN 81 MG TABLET(ECOTRIN) PO SCH (11:37)
[2021-04-11] MEDS: GABAPENTIN 100 MG CAPSULE PO SCH ×2 (11:42→21:25)
[2021-04-11 12:00] VITALS: BP_SYST 123
[2021-04-11 15:54] LABS: NEUTROPHILS % (AUTO) 89.6 % (40.0-70.0)
[2021-04-11 17:04] VITALS: BP_SYST 125
[2021-04-11 20:00] VITALS: BP_SYST 141
[2021-04-12] MEDS: DECADRON 4 MG TABLET PO SCH (00:39)
[2021-04-12 01:00] VITALS: BP_SYST 121
--- NOTE | 2021-04-12 08:00 | NUR ---
NOTES PATIENT AAOX 4. VITALS SIGNS STABLE. AFEBRILE. LUNGS BILATERALLY DIMINISHED AT THE BASES. HAS IV ACCESS PICC LINE ON THE LEFT UPPER ARM. SALINE LOCKED. PATENT/DRY. ABDOMEN SOFT AND NON DISTENDED. CALL LIGHTS WITHIN REACH. BED LOW POSITION, ALARMED AND LOCKED. WILL CONTINUE
[2021-04-12] MEDS: ENOXAPARIN SODIUM 40 MG/0.4 ML SYRINGE SUBCUT SCH ×2 (09:34→21:09)
[2021-04-12] MEDS: COLCHICINE 0.6 MG TABLET PO SCH (09:39)
[2021-04-12] MEDS: THIAMINE HCL 100 MG TABLET PO SCH (09:40)
[2021-04-12] MEDS: ASPIRIN 81 MG TABLET(ECOTRIN) PO SCH (09:40)
[2021-04-12] MEDS: CHOLECALCIFEROL (VITAMIN D-3) 400 UNIT TABLET PO SCH (09:40)
[2021-04-12] MEDS: GABAPENTIN 100 MG CAPSULE PO SCH ×2 (09:41→21:07)
[2021-04-12] MEDS: ASCORBIC ACID 500 MG TABLET PO SCH (09:41)
[2021-04-12] MEDS: ATORVASTATIN 20 MG TABLET PO SCH (09:41)
[2021-04-12] MEDS: METOPROLOL TARTRATE 50 MG TABLET PO SCH ×2 (09:48→21:00)
[2021-04-12] MEDS: BENZONATATE 100 MG CAPSULE (TESSALON) PO PRN (09:48)
[2021-04-12] MEDS: AMIODARONE HCL 200 MG TABLET PO SCH ×2 (09:49→21:00)
[2021-04-12] MEDS: BARICITINIB -Non-Formulary 2 MG TABLET PO SCH (09:53)
[2021-04-12 09:54] VITALS: BP_SYST 120
--- NOTE | 2021-04-12 09:55 | NUR ---
DUE MEDS GIVEN. REQUEST TO HAVE TESSALON LIZZETH TAB FOR COUGHING.
[2021-04-12 11:22] LABS: BASOPHILS % (AUTO) 0.1 % (0.0-2.0); EOSINOPHILS % (AUTO) 0.2 % (0.0-4.0); HEMATOCRIT 31.3 % (36-54); HEMOGLOBIN 10.5 g/dL (14.0-18.0); LYMPHOCYTES # (AUTO) 0.3 K/uL (1.0-5.5); MEAN CORPUSCULAR HEMOGLOBIN 29 pg (27-31); MEAN CORPUSCULAR HGB CONC 34 % (32-36); MEAN CORPUSCULAR VOLUME 85 fL (79.0-98.0); MONOCYTES # (AUTO) 0.1 K/uL (0.0-1.0); MONOCYTES % (AUTO) 1.4 % (1.7-9.3); NEUTROPHILS # (AUTO) 4.6 K/uL (1.8-7.7); NEUTROPHILS % (AUTO) 92.3 % (40.0-70.0); PLATELET COUNT (AUTO) 64 K/uL (130-430); RED BLOOD CELL COUNT(AUTO) 3.69 MIL/uL (4.2-6.2); RED CELL DISTRIBUTION WIDTH 17.6 % (9.0-15.0)
--- NOTE | 2021-04-12 12:11 | NUR ---
Case mgt: Reviewed case -per dcpa, family requesting home health-pt is dc'd from our PT as pt ambulating 90ft and no recommendation on notes for home PT--OMER Church will notify Dr. Mack to review on rounds for Home Health if needed--[facility] pt-- OMER
[2021-04-12 15:15] LABS: HEMATOCRIT 29.4 % (36-54); HEMOGLOBIN 9.9 g/dL (14.0-18.0); MEAN CORPUSCULAR HEMOGLOBIN 30 pg (27-31); RED BLOOD CELL COUNT(AUTO) 3.31 MIL/uL (4.2-6.2)
[2021-04-12 15:16] LABS: MEAN CORPUSCULAR HGB CONC 34 % (32-36)
[2021-04-12 16:29] VITALS: BP_SYST 118
--- NOTE | 2021-04-12 16:35 | NUR ---
DR SERNA CAME AND EVALUATE THE PATIENT.CAME AND SEE THE PATIENT.
--- NOTE | 2021-04-12 19:11 | NUR ---
PLEASE MAKE SURE TO ASKED DR ROJAS TO D/C HOME WITH HOME HEALTH PER [facility] GRIEVANCE COORDINATOR. PLEASE FOLLOW UP.
[2021-04-12 20:00] VITALS: BP_SYST 123
[2021-04-13] VITALS: BP_SYST 125
[2021-04-13 04:00] VITALS: BP_SYST 126
[2021-04-13] MEDS: DECADRON 4 MG TABLET PO SCH ×2 (05:20→23:58)
[2021-04-13 06:55] LABS: BASOPHILS % (AUTO) 0.4 % (0.0-2.0); EOSINOPHILS % (AUTO) 1.1 % (0.0-4.0); HEMATOCRIT 29.3 % (36-54); HEMOGLOBIN 10.2 g/dL (14.0-18.0); LYMPHOCYTES # (AUTO) 0.9 K/uL (1.0-5.5); LYMPHOCYTES % (AUTO) 29.8 % (20.5-51.5); MEAN CORPUSCULAR HEMOGLOBIN 31 pg (27-31); MEAN CORPUSCULAR HGB CONC 35 % (32-36); MEAN CORPUSCULAR VOLUME 88 fL (79.0-98.0); MONOCYTES # (AUTO) 0.2 K/uL (0.0-1.0); MONOCYTES % (AUTO) 5.2 % (1.7-9.3); NEUTROPHILS % (AUTO) 63.5 % (40.0-70.0); PLATELET COUNT (AUTO) 61 K/uL (130-430); RED BLOOD CELL COUNT(AUTO) 3.33 MIL/uL (4.2-6.2); RED CELL DISTRIBUTION WIDTH 16.9 % (9.0-15.0); WHITE BLOOD COUNT (AUTO) 3.1 K/uL (4.8-10.8)
[2021-04-13 07:46] VITALS: BP_SYST 99
[2021-04-13 07:46] LABS: ANION GAP 7 (5-15); CALCIUM 7.8 mg/dL (8.4-11.0); CHLORIDE 106 mmol/L (98-107); CREATININE 1.08 mg/dL (0.55-1.30); GLUCOSE 87 mg/dL (70-99); POTASSIUM 4.2 mmol/L (3.5-5.1); SODIUM SERUM 138 mmol/L (136-145); UREA NITROGEN, BLOOD 33 mg/dL (8-21)
--- NOTE | 2021-04-13 07:50 | NUR ---
PT IS IN SVT ON TELE MONITOR, HR IN THE >160'S, COMPLAINED OF CHEST TIGHTNESS. BP SLIGHTLY LOW. INFORMED DR. CLEMENT AND ORDER RECEIVED.
--- NOTE | 2021-04-13 07:55 | NUR ---
INFORMED US YINKA THAT THE PATIENTS HEART RATE IS 165 HE WILL INFORM REG NURSE JONATHAN
[2021-04-13] MEDS ORDERED: METOPROLOL TARTRATE 5 MG/5 ML AMPUL IVP ONE (08:00)
[2021-04-13] MEDS ORDERED: METOPROLOL TARTRATE 5 MG/5 ML AMPUL ONE (08:08)
--- NOTE | 2021-04-13 08:15 | NUR ---
PT CONVERTED TO ST TO SINUS TACHYCARDIA TO SINUS RHYTHM POST METOPROLOL 5 MG IV GIVEN IN LESS THAN 15 MIN. WILL CLOSELY MONITOR PT.
[2021-04-13] MEDS: ENOXAPARIN SODIUM 40 MG/0.4 ML SYRINGE SUBCUT SCH ×2 (08:19→20:39)
[2021-04-13] MEDS: COLCHICINE 0.6 MG TABLET PO SCH (08:20)
[2021-04-13] MEDS: ASPIRIN 81 MG TABLET(ECOTRIN) PO SCH (08:20)
[2021-04-13] MEDS: CHOLECALCIFEROL (VITAMIN D-3) 400 UNIT TABLET PO SCH (08:20)
[2021-04-13] MEDS: THIAMINE HCL 100 MG TABLET PO SCH (08:21)
[2021-04-13] MEDS: AMIODARONE HCL 200 MG TABLET PO SCH ×2 (08:21→20:42)
[2021-04-13] MEDS: ASCORBIC ACID 500 MG TABLET PO SCH (08:22)
[2021-04-13] MEDS: GABAPENTIN 100 MG CAPSULE PO SCH ×2 (08:22→20:38)
[2021-04-13] MEDS: ATORVASTATIN 20 MG TABLET PO SCH (08:22)
[2021-04-13 11:35] VITALS: BP_SYST 110
[2021-04-13] MEDS: METOPROLOL TARTRATE 50 MG TABLET PO SCH ×2 (11:46→20:39)
[2021-04-13 16:15] VITALS: BP_SYST 118
[2021-04-13 17:06] LABS: IMMUNOGLOBULIN M, SERUM 982 mg/dL (15-143)
[2021-04-13 21:00] VITALS: BP_SYST 125
--- NOTE | 2021-04-13 22:37 | NUR ---
Patient awake alert sitting up - in bed alert x four using urinal as needed , clear yellow urine noted call gautam given / .
[2021-04-14 00:21] VITALS: BP_SYST 122
--- NOTE | 2021-04-14 02:47 | NUR ---
Hourly Rounding patient Resting verbally Responsive , call gautam with patient chest movement symmetrical unlabored .
[2021-04-14 08:08] VITALS: BP_SYST 133
[2021-04-14] MEDS: CHOLECALCIFEROL (VITAMIN D-3) 400 UNIT TABLET PO SCH (08:26)
[2021-04-14] MEDS: ENOXAPARIN SODIUM 40 MG/0.4 ML SYRINGE SUBCUT SCH ×2 (08:26→20:54)
[2021-04-14] MEDS: AMIODARONE HCL 200 MG TABLET PO SCH ×2 (08:27→20:47)
[2021-04-14] MEDS: THIAMINE HCL 100 MG TABLET PO SCH (08:27)
[2021-04-14] MEDS: ATORVASTATIN 20 MG TABLET PO SCH (08:28)
[2021-04-14] MEDS: METOPROLOL TARTRATE 50 MG TABLET PO SCH ×2 (08:28→20:47)
[2021-04-14] MEDS: ASPIRIN 81 MG TABLET(ECOTRIN) PO SCH (08:28)
[2021-04-14] MEDS: ASCORBIC ACID 500 MG TABLET PO SCH (08:28)
[2021-04-14] MEDS: GABAPENTIN 100 MG CAPSULE PO SCH ×2 (08:28→20:48)
[2021-04-14] MEDS: COLCHICINE 0.6 MG TABLET PO SCH (08:29)
[2021-04-14 11:33] VITALS: BP_SYST 119
[2021-04-14 16:08] VITALS: BP_SYST 132
[2021-04-14 20:00] VITALS: BP_SYST 122
[2021-04-15 01:16] VITALS: BP_SYST 158
[2021-04-15] MEDS: DECADRON 4 MG TABLET PO SCH (05:11)
[2021-04-15 07:30] LABS: BASOPHILS % (AUTO) 0.2 % (0.0-2.0); EOSINOPHILS % (AUTO) 0.9 % (0.0-4.0); HEMATOCRIT 30.6 % (36-54); HEMOGLOBIN 11.1 g/dL (14.0-18.0); LYMPHOCYTES # (AUTO) 0.7 K/uL (1.0-5.5); LYMPHOCYTES % (AUTO) 19.9 % (20.5-51.5); MEAN CORPUSCULAR HEMOGLOBIN 33 pg (27-31); MEAN CORPUSCULAR HGB CONC 36 % (32-36); MEAN CORPUSCULAR VOLUME 90 fL (79.0-98.0); MONOCYTES # (AUTO) 0.2 K/uL (0.0-1.0); MONOCYTES % (AUTO) 6.9 % (1.7-9.3); NEUTROPHILS # (AUTO) 2.4 K/uL (1.8-7.7); NEUTROPHILS % (AUTO) 72.1 % (40.0-70.0); PLATELET COUNT (AUTO) 84 K/uL (130-430); RED BLOOD CELL COUNT(AUTO) 3.41 MIL/uL (4.2-6.2); RED CELL DISTRIBUTION WIDTH 18.6 % (9.0-15.0); WHITE BLOOD COUNT (AUTO) 3.3 K/uL (4.8-10.8)
[2021-04-15 08:00] VITALS: BP_SYST 147
[2021-04-15] MEDS: METOPROLOL TARTRATE 50 MG TABLET PO SCH (08:50)
[2021-04-15] MEDS: ASPIRIN 81 MG TABLET(ECOTRIN) PO SCH (08:51)
[2021-04-15] MEDS: AMIODARONE HCL 200 MG TABLET PO SCH (08:51)
[2021-04-15] MEDS: THIAMINE HCL 100 MG TABLET PO SCH (08:51)
[2021-04-15] MEDS: CHOLECALCIFEROL (VITAMIN D-3) 400 UNIT TABLET PO SCH (08:51)
[2021-04-15] MEDS: COLCHICINE 0.6 MG TABLET PO SCH (08:52)
[2021-04-15] MEDS: GABAPENTIN 100 MG CAPSULE PO SCH (08:52)
[2021-04-15] MEDS: ASCORBIC ACID 500 MG TABLET PO SCH (08:52)
[2021-04-15] MEDS: ATORVASTATIN 20 MG TABLET PO SCH (08:52)
[2021-04-15] MEDS: ENOXAPARIN SODIUM 40 MG/0.4 ML SYRINGE SUBCUT SCH (08:57)
[2021-04-15 12:00] VITALS: BP_SYST 128
[2021-04-15 12:35] VITALS: BP_SYST 135
--- NOTE | 2021-04-15 12:40 | NUR ---
NOTE RN CALLED PT'S DAUGHTER NIKKI - THAT PT DISCHARGED HOME TODAY. PT'S DAUGHTER NIKKI WILL PICK HER FATHER (PT) AT 1330. PT NOTIFIED.
--- NOTE | 2021-04-15 13:15 | NUR ---
NOTE Pt was given discharge instructions and PICC was dc'd from [facility]. Pt's tele unit was dc'd and returned to campus monitor. Pt was checked on q1' and PRN all shft for needs and care. Pt's bed in low position and bed alarm on all shift. Pt was maintained with safety and isolation precautions all shift. Pt was assisted in wearing street clothes and all belongings were packed. Pt checked side table and drawers for belongings. Pt stable. Call light within reach all shift.
--- NOTE | 2021-04-15 13:50 | NUR ---
Note Pt left floor via wheelchair to private car with all belongings and paperwork at 1345.
== END 2021-04-15 13:45 | disposition home or self-care (01) | DRG 177 ==
LOC: SED 18:54 → STU 21:40
PROVIDERS: ADMIT Family Medicine; ATTEND Family Medicine
PROC: XW033E5 Introduction of Remdesivir Anti-infective into Peripheral Vein, Percutaneous Approach, New Technology Group 5 (ICD-10-PCS; principal; 2021-04-09)
DX: U07.1 COVID-19 (principal); J12.82 Pneumonia due to coronavirus disease 2019; J96.91 Respiratory failure, unspecified with hypoxia; D84.9 Immunodeficiency, unspecified; I47.1 Supraventricular tachycardia; C95.90 Leukemia, unspecified not having achieved remission; D69.6 Thrombocytopenia, unspecified; I10 Essential (primary) hypertension; E78.5 Hyperlipidemia, unspecified; D64.9 Anemia, unspecified; C88.0 Waldenstrom macroglobulinemia; Z79.899 Other long term (current) drug therapy; Z89.411 Acquired absence of right great toe; Z87.891 Personal history of nicotine dependence; Z79.82 Long term (current) use of aspirin
CPT/HCPCS: 36415; 71045; 80048; 80053; 80061; 81003; 82272; 82607; 82728; 82746; 82784; 83540; 83550; 83605; 83735; 83880; 84443; 84484; 85007; 85025; 85027; 85044; 85379; 85610-TC; 85730-TC; 86140; 87040; 93005; 96361; 96374; 96375; 99285; G0378; J0153; J0696; J1100; J1650; J2543; J3370; J3490; J7050; J7060; J8540